=== PATIENT | male | born 1980 | race Caucasian/White ===

== ENCOUNTER 2021-09-12 13:55 | Emergency (ER) | payer OTHER ==
[2021-09-12] MEDS ORDERED: ACETAMINOPHEN 500 MG TABLET (FP) PO ONE (14:11)
[2021-09-12] MEDS ORDERED: LIDOCAINE 5% TOPICAL PATCH TP ONE (14:11)
[2021-09-12] MEDS ORDERED: METHOCARBAMOL 500 MG TABLET PO ONE (14:11)
[2021-09-12] MEDS ORDERED: ACETAMINOPHEN 325 MG TABLET (FP) ONE (14:15)
[2021-09-12] MEDS ORDERED: METHOCARBAMOL 500 MG TABLET ONE (14:15)
[2021-09-12] MEDS ORDERED: LIDOCAINE 5% TOPICAL PATCH ONE (14:16)
[2021-09-12 14:24] VITALS: BP 132/76; PULSE 98; RESP 18; TEMP 97.8; BMI 33.7
[2021-09-12] MEDS ORDERED: LIDOCAINE PATCH REMOVAL MC SCH (22:00)
== END 2021-09-12 15:25 | disposition home or self-care (01) ==
LOC: FER 13:55
DX: M54.50 Low back pain, unspecified (principal); V43.52XA Car driver injured in collision with other type car in traffic accident, initial encounter
CPT/HCPCS: 72100-TC-FY; 99283-25